=== PATIENT | female | born 1995 | race Caucasian/White ===

== ENCOUNTER 2021-01-02 08:44 | Outpatient (RCR) | payer OTHER, SELFPAY | END 2021-03-05 23:59 | LOC: IMMUN 08:44 | PROVIDERS: Visit Provider Family Medicine | DX: Z23 Encounter for immunization (principal) | CPT/HCPCS: 0001A; 0002A; 91300 ==

== ENCOUNTER → 2023-10-05 | Outpatient (CLI) | payer MEDICAID, SELFPAY ==
--- OUTSIDE RECORDS SUMMARY | 2023-10-05 21:34 | XMS RPT_ITS | CCD ---
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, Bere Rivera Unavailable [phone] Problems Active Problems Problem Classification Problem Date Documented Da te Episodic/Chronic Other female genital disorders (2 sources) Postcoital bleeding; Translations: [Postcoital and contact bleeding] Onset: 12-20-2019 12-20-2019 Chronic Past or Other Problems Problem Classification Problem Date Documented Da te Episodic/Chronic Cancer of cervix (2 sources) Atypical squamous cells of undetermined significance on cervical Papanicolaou smear; Translations: [Atypical squamous cells of undetermined significance on cytologic smear of cervix (ASC-US)] Onset: 01-03-2020 01-03-2020 Episodic Encounters Encounter Date Encounter Type Care Provider Facility Start: 11-13-2022 Letter encounter Venita Sharpe MD [facility] Start: 05-13-2022 Letter encounter Venita Sharpe MD [facility] Procedures Date Procedure Procedure Detail Performing Clinician Start: 01-03-2020 Microscopic observat ion [Identifier] in Cervix by Cyto stain Venita Sharpe MD Plan of Treatment Date Care Activity Detail Author Start: 2044 Shingles (RZV) Vacci ne (1 of 2) Shingles (RZV) Vaccine (1 of 2) [facility] Start: 06-28-2022 Influenza vaccination Influenza Vacc ine (#1) [facility] Start: 01-17-2022 COVID-19 Vaccine (4 - Booster for Pfizer series) COVID-19 Vaccine (4 - Booster for Pfizer series) [facility] Start: 09-09-2021 Tetanus vaccination Tetanus (T d or Tdap) Booster [facility] Start: 01-02-2021 Screening for malign ant neoplasm of cervix Pap Smear [facility] Start: 2012 Hepatitis C screening Hepatitis C [facility] Immunizations Immunization Date Immunization Notes Care Provider Bimal rosenberg 07-13-2021 Seasonal, quadrivale nt, recombinant, injectable influenza vaccine, preservative free Venita Sharpe MD [facility] 07-13-2021 influenza virus vacc ine, unspecified formulation Venita Sharpe MD [facility] 01-23-2021 Pfizer (12+ yrs) ALEX S-COV-2 (COVID-19) vaccine, mRNA, spike protein, LNP, pres. free, 30 mcg/0.3mL dose (LSN=074) Venita Sharpe MD [facility] 01-02-2021 Pfizer (12+ yrs) ALEX S-COV-2 (COVID-19) vaccine, mRNA, spike protein, LNP, pres. free, 30 mcg/0.3mL dose (NBT=183) Venita Sharpe MD [facility] 07-03-2020 influenza virus vacc ine, live, attenuated, for intranasal use Venita Sharpe MD [facility] 05-24-2019 influenza virus vacc ine, unspecified formulation Venita Sharpe MD [facility] 05-24-2019 tuberculin skin test ; purified protein derivative solution, intradermal Venita Sharpe MD [facility] 06-09-2018 Human Papillomavirus 9-valent vaccine Venita Sharpe MD [facility] 01-08-2018 Human Papillomavirus 9-valent vaccine Venita Sharpe MD [facility] 12-07-2017 Human Papillomavirus 9-valent vaccine Venita Sharpe MD [facility] 11-23-2017 tuberculin skin test ; purified protein derivative solution, intradermal Venita Sharpe MD [facility] 10-26-2017 influenza, injectabl e, quadrivalent, preservative free Venita Sharpe MD [facility] 07-13-2014 influenza, injectabl e, quadrivalent, preservative free Venita Sharpe MD [facility] 04-13-2012 hepatitis A vaccine, pediatric/adolescent dosage, 2 dose schedule Venita Sharpe MD [facility] 09-09-2011 hepatitis A vaccine, unspecified formulation Venita Sharpe MD [facility] 09-09-2011 meningococcal B vacc ine, recombinant, OMV, adjuvanted Venita Sharpe MD [facility] 09-09-2011 meningococcal polysa ccharide (groups A, C, Y and W-135) diphtheria toxoid conjugate vaccine (MCV4P) Venita Sharpe MD [facility] 09-09-2011 tetanus toxoid, redu rishi diphtheria toxoid, and acellular pertussis vaccine, adsorbed Venita Sharpe MD [facility] 07-18-2011 influenza, seasonal, injectable, preservative free Venita Sharpe MD [facility] 07-19-2010 influenza, seasonal, injectable Venita Sharpe MD [facility] 09-18-2009 novel influenza-H1N1 -, preservative-free, injectable Venita Sharpe MD [facility] 06-22-2009 influenza virus vacc ine, whole virus Venita Sharpe MD [facility] 03-26-2007 measles, mumps and r ubella virus vaccine Venita Sharpe MD [facility] 03-21-2001 poliovirus vaccine, inactivated Venita Sharpe MD [facility] 03-26-2000 diphtheria, tetanus toxoids and acellular pertussis vaccine, unspecified formulation Venita Sharpe MD [facility] 03-26-2000 measles, mumps and r ubella virus vaccine Venita Sharpe MD [facility] 03-26-2000 poliovirus vaccine, unspecified formulation Venita Sharpe MD [facility] 05-20-1996 diphtheria, tetanus toxoids and acellular pertussis vaccine, 5 pertussis antigens Venita Sharpe MD [facility] 05-20-1996 poliovirus vaccine, unspecified formulation Venita Sharpe MD [facility] 02-25-1996 hepatitis B vaccine, unspecified formulation Venita Sharpe MD [facility] 01-28-1996 haemophilus influenz ae type b vaccine, conjugate unspecified formulation Venita Sharpe MD [facility] 01-28-1996 measles, mumps and r ubella virus vaccine Venita Sharpe MD [facility] 10-26-1995 varicella virus vaccine Venita schaffer MD [facility] 05-14-1995 diphtheria, tetanus toxoids and acellular pertussis vaccine, 5 pertussis antigens Venita Sharpe MD [facility] 05-14-1995 haemophilus influenz ae type b vaccine, conjugate unspecified formulation Venita Sharpe MD [facility] 03-16-1995 haemophilus influenz ae type b vaccine, conjugate unspecified formulation Venita Sharpe MD [facility] 03-13-1995 diphtheria, tetanus toxoids and acellular pertussis vaccine, 5 pertussis antigens Venita Sharpe MD [facility] 03-13-1995 poliovirus vaccine, unspecified formulation Venita Sharpe MD [facility] 02-02-1995 hepatitis B vaccine, unspecified formulation Venita Sharpe MD [facility] 1994 diphtheria, tetanus toxoids and acellular pertussis vaccine, 5 pertussis antigens Venita Sharpe MD [facility] 1994 haemophilus influenz ae type b vaccine, conjugate unspecified formulation Venita Sharpe MD [facility] 1994 poliovirus vaccine, unspecified formulation Venita Sharpe MD [facility] 1994 hepatitis B vaccine, unspecified formulation Venita Sharpe MD [facility] Payers Date Payer Category Payer Private Health Insurance [facility] NON-HMO/CHOICE/CHOICE PLUS [id number] 2019-Present [address] [address] [place] [address] Indemnity [id number] Social History Date Type Detail Facility Start: 10-26-2017 Tobacco smoking stat [facility] Never smoked tobacco [facility] Start: 10-26-2017 Tobacco use and exposure Smokeless t obacco non-user [facility] Start: 01-03-2020 Alcohol intake Current drinke r of alcohol (finding) [facility] Start: 10-26-2017 History SDOH Alcohol Comment occassional [facility] Start: 1995 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 This clinical summary was aggregated from multiple sources. Caution should be exercised in using it in the provision of clinical care. This summary normalizes information from multiple sources, and as a consequence, information in this document may materially change the coding, format and clinical context of patient data. In addition, data may be omitted in some cases. CLINICAL DECISIONS SHOULD BE BASED ON THE PRIMARY CLINICAL RECORDS. [facility] provides no warranty or guarantee of the accuracy or completeness of information in this document.
[2023-10-08 18:33] LABS: HPV Reflexed? NOT INDICATED
== END | disposition home or self-care (01) ==
PROVIDERS: Visit Provider Advanced Practice Midwife
DX: Z00.00 Encounter for general adult medical examination without abnormal findings (principal); Z12.4 Encounter for screening for malignant neoplasm of cervix
CPT/HCPCS: 88175; G0145